=== PATIENT | female | born 1965 | race Caucasian/White ===

== ENCOUNTER 2018-09-28 09:41 | Emergency (ER) | payer MEDICAID ==
[~2018-09-28] VITALS: Ht 172.7 cm; Wt 90.0 kg
--- NOTE | 2018-09-28 10:15 | NUR ---
PT WITH C/O R FLANK PAIN, PER PT SINCE LAST Friday09/23/18. PT ALSO STATES SHE HAD A FEVER OF 101.0. PT DOES HAVE 7/10 FLANK PAIN AT THIS TIME AND SOME C/O NAUSEA. ERMD AT BEDSIDE TO DALE PT. PT ON CONT PULSE OX, NIBP.
[2018-09-28] MEDS ORDERED: KETOROLAC 30 MG/1 ML IVPush ONE (10:30)
[2018-09-28] MEDS ORDERED: ONDANSETRON 2MG/ML, 2ML IVPush ONE (10:30)
[2018-09-28] MEDS ORDERED: SODIUM CHLORIDE FLUSH 10ML SYR IVF ONE (10:30)
[2018-09-28] MEDS ORDERED: MORPHINE SULFATE 4 MG/ML, 1ML IVPush PRN (10:30)
[2018-09-28 10:35] LABS: MICROSCOPIC NOT IND
[2018-09-28 10:38] LABS: CULTURE INDICATED? NO
[2018-09-28 10:43] LABS: BASOPHILS # (AUTO) 0.12 x10^3/uL (0-0.1); BASOPHILS % (AUTO) 2 % (0-1); EOSINOPHILS # (AUTO) 0.36 x10^3/uL (0-0.4); EOSINOPHILS % (AUTO) 5 % (1-7); LYMPHOCYTES # (AUTO) 2.61 x10^3/uL (1-3.4); LYMPHOCYTES % (AUTO) 37 % (22-44); MD NO; MEAN CORPUSCULAR HEMOGLOBIN 29.4 pg (27.0-34.8); MEAN CORPUSCULAR HGB CONC 33.3 g/dL (32.4-35.8); MEAN CORPUSCULAR VOLUME 88.3 fL (80-100); MEAN PLATELET VOLUME 7.6 fL (7.4-10.4); MONOCYTES # (AUTO) 0.73 x10^3/uL (0.2-0.8); MONOCYTES % (AUTO) 10 % (2-9); NEUTROPHILS # (AUTO) 3.33 x10^3/uL (1.8-6.8); NEUTROPHILS % (AUTO) 47 % (42-75); PLATELET COUNT 312 x10^3/uL (130-400); RED BLOOD COUNT 4.52 x10^6/uL (3.82-5.3); RED CELL DISTRIBUTION WIDTH 13.7 % (9.6-15.2)
[2018-09-28 10:56] LABS: ANION GAP 8 mmol/L (5-15); CALCIUM 9.4 mg/dL (8.5-10.1); CHLORIDE 109 mmol/L (98-107)
[2018-09-28] MEDS ORDERED: ONDANSETRON 2MG/ML, 2ML ONE (11:00)
[2018-09-28] MEDS ORDERED: KETOROLAC 30 MG/1 ML ONE (11:00)
[2018-09-28 11:01] LABS: ALANINE AMINOTRANSFERASE 30 U/L (12-78); ALKALINE PHOSPHATASE 79 U/L (45-117); BILIRUBIN,TOTAL 0.6 mg/dL (0.2-1.0); CREATININE 0.95 mg/dL (0.55-1.02); TOTAL PROTEIN 7.5 g/dL (6.4-8.2)
--- NOTE | 2018-09-28 11:04 | NUR ---
PIV ESTABLISHED, PT MEDICATED FOR PAIN AND NAUSEA, NO OTHER NEEDS AT THIS TIME
--- NOTE | 2018-09-28 11:11 | NUR ---
PT PLACED ON 2L O2, PT NOW SATING 95-96%
--- NOTE | 2018-09-28 11:40 | NUR ---
PT TAKEN TO CT.
[2018-09-28 12:18] VITALS: BP 100/72
--- NOTE | 2018-09-28 12:43 | NUR ---
Patient given discharge instructions and they have confirmed that they understand the instructions. Patient ambulatory with steady gait.
== END 2018-09-28 12:45 | disposition home or self-care (01) ==
LOC: ED 11:51
DX: R10.9 Unspecified abdominal pain (principal); M54.5 Low back pain
CPT/HCPCS: 36415; 74176; 80053; 81003; 85025; 96374; 96375; 99284; J1885; J2405

== ENCOUNTER 2019-12-15 10:00 | Emergency (ER) | payer MEDICAID, OTHER ==
[~2019-12-15] VITALS: Ht 172.7 cm; Wt 92.8 kg
[2019-12-15] MEDS ORDERED: DIAZEPAM 5 MG TABLET PO ONE (11:00)
[2019-12-15] MEDS ORDERED: KETOROLAC 30 MG/1 ML IVPush ONE (11:00)
[2019-12-15] MEDS ORDERED: DIAZEPAM 5 MG TABLET ONE (11:00)
[2019-12-15] MEDS ORDERED: KETOROLAC 30 MG/1 ML ONE (11:00)
--- NOTE | 2019-12-15 11:00 | NUR ---
LATE ENTRY FOR 1100: PT PRESENTS TO ED WITH CHRONIC BILATERAL LOWER BACK PAIN THAT HAS BEEN PRESENT FOR SEVERAL YEARS, WORSE IN LAST FEW DAYS. PT REPORTS URINARY DRIBBLING X 3 DAYS. PT IS A&O, RESPS EVEN AND UNLABORED, NEURO INTACT. BP AND SPO2 MONITORS IN PLACE. CALL LIGHT IN REACH. S/O AT BEDSIDE. PT TO HAVE MRI.
[2019-12-15] MEDS ORDERED: GADOTERATE 10 MMOL/20 ML VIAL ONE ×3 (11:47→22:16)
[2019-12-15] MEDS ORDERED: SODIUM CHLORIDE FLUSH 10ML SYR IVF ONE (12:00)
[2019-12-15] MEDS ORDERED: MORPHINE SULFATE 4 MG/ML, 1ML ONE (12:11)
[2019-12-15] MEDS ORDERED: ONDANSETRON 2MG/ML, 2ML ONE (12:11)
--- NOTE | 2019-12-15 12:16 | NUR ---
pt reports pain level has not improved since valium and toradol admin, LI Pedro notified. morphine and zofran ordered, admin per emar, tolerated well. pt placed on oxygen at 2L/min via NC for MRI. pt taken to MRI at this time. urine sample provided just prior to MRI.
[2019-12-15] MEDS ORDERED: MORPHINE SULFATE 4 MG/ML, 1ML IVPush PRN (12:30)
[2019-12-15] MEDS ORDERED: ONDANSETRON 2MG/ML, 2ML IVPush ONE (12:30)
[2019-12-15 12:43] LABS: MICROSCOPIC AUTO
[2019-12-15 13:41] VITALS: BP 127/94
--- NOTE | 2019-12-15 13:48 | NUR ---
SAPNA DAVISON AT BEDSIDE TO UPDATE PT WITH RESULTS AND POC. PT STATES PAIN MARGINALLY IMPROVED S/P MORPHINE. PT A&O, RESPS EVEN AND UNLABORED. AWAITING FURTHER ORDERS AT THIS TIME.
--- NOTE | 2019-12-15 14:12 | NUR ---
PT GIVEN DC INSTRUCTIONS AND SCRIPT, EDUCATED REGARDING RX FOR FLEXIRIL AND NAPROXEN. PT A&O, RESPS EVEN AND UNLABORED, AMBULATORY WITH STEADY GAIT, UNASSISTED. PIV DC'D WITH TIP INTACT. PT EDUCATED NOT TO DRIVE TODAY D/T MEDS GIVEN. PT AMBULATORY TO DISCHARGE WITH .
== END 2019-12-15 14:13 | disposition home or self-care (01) ==
LOC: ED 10:59
DX: S39.012A Strain of muscle, fascia and tendon of lower back, initial encounter (principal); R10.9 Unspecified abdominal pain; Z90.49 Acquired absence of other specified parts of digestive tract; Z90.710 Acquired absence of both cervix and uterus; X58.XXXA Exposure to other specified factors, initial encounter; Y93.89 Activity, other specified; Y92.89 Other specified places as the place of occurrence of the external cause; Y99.8 Other external cause status
CPT/HCPCS: 72158; 81001; 87086; 96374; 96375; 99285; A9575; J1885; J2270; J2405